=== PATIENT | female | born 1990 | race Caucasian/White ===

== ENCOUNTER 2023-07-05 22:24 | Emergency (ER) | payer OTHER ==
[2023-07-05 22:34] VITALS: BP 111/83; PULSE 82; RESP 18; TEMP 97.8; BMI 24.7
[2023-07-05] MEDS ORDERED: LIDOCAINE 5% TOPICAL PATCH TP ONE (23:12)
[2023-07-05] MEDS ORDERED: LIDOCAINE 4% PATCH TP ONE (23:27)
[2023-07-05] MEDS ORDERED: KETOROLAC TROMETHAMINE 30 MG/1 ML VIAL IM ONE (23:41)
[2023-07-06] MEDS ORDERED: KETOROLAC TROMETHAMINE 30 MG/1 ML VIAL ONE ×2 (00:06→00:16)
[2023-07-06] MEDS ORDERED: LIDOCAINE PATCH REMOVAL MC ONE (11:00)
== END 2023-07-06 00:27 | disposition home or self-care (01) ==
LOC: JER 22:24
PROC: 3E0233Z Introduction of Anti-inflammatory into Muscle, Percutaneous Approach (ICD-10-PCS; principal; 2023-07-05)
DX: R07.81 Pleurodynia (principal); M54.2 Cervicalgia; M54.9 Dorsalgia, unspecified; R05.9 Cough, unspecified; R06.7 Sneezing
CPT/HCPCS: 71046-TC-FY; 71101-TC-LT-FY; 84703; 99284-25